=== PATIENT | female | born 1975 | race Asian ===

== ENCOUNTER 2023-04-06 07:12 | Inpatient (IN) | payer MEDICAID ==
[~2023-04-06] VITALS: Ht 162.6 cm; Wt 77.0 kg
[2023-04-06 07:29] LABS: Basophils # (auto) 0 10 ^3/uL (0-0.2); Basophils % (auto) 0.7 % (0.0-2.0); Eosinophils # (auto) 0.1 10 ^3/uL (0-0.8); Eosinophils % (auto) 1.7 % (0.0-7.0); Hematocrit 41.7 % (36.0-46.0); Hemoglobin 14.2 g/dL (12.2-16.2); Lymphocytes # (auto) 2.8 10 ^3/uL (0.4-5.4); Lymphocytes % (auto) 41.8 % (10.0-50.0); Mean Corpuscular Hemoglobin 30.6 pg (28.0-32.0); Mean Corpuscular Hgb Conc. 34.1 g/dL (32.0-36.0); Mean Corpuscular Volume 89.7 fL (80.0-100.0); Monocytes # (auto) 0.3 10 ^3/uL (0-1.3); Monocytes % (auto) 3.8 % (0.0-12.0); Neutrophils # (auto) 3.5 10 ^3/uL (1.6-8.6); Nucleated Red Blood Cells % 0.2 %; Red Blood Cells 4.65 10^6/uL (4.0-5.20); White Blood Cell 6.7 10^3/uL (4.4-10.8)
[2023-04-06 08:01] VITALS: PULSE 72; RESP 22; O2SAT 96
[2023-04-06 08:27] LABS: Alanine Aminotransferase 22 U/L (7-40); Albumin 4.6 g/dL (3.2-4.8); Alkaline Phosphatase 54 U/L (46-116); Anion Gap 9 (5-15); Aspartate Aminotransferase 28 U/L (13-40); BUN/Creatinine Ratio 11.9 (10.0-20.0); Bilirubin, Total 1.1 mg/dL (0.2-1.0); Blood Urea Nitrogen 7 mg/dL (9-23); Calcium 9.6 mg/dL (8.5-10.1); Carbon Dioxide 24 mmol/L (20-30); Chloride 106 mmol/L (98-107); Glucose 126 mg/dL (74-106); Potassium 3.4 mmol/L (3.5-5.1); Sodium 139 mmol/L (136-145)
[2023-04-06 08:28] LABS: Total Protein 7.3 g/dL (5.7-8.2)
[2023-04-06] MEDS ORDERED: KETOROLAC TROMETH 30 MG/ML 1ML VIAL IV ONE ×2 (08:45→09:15)
[2023-04-06] MEDS ORDERED: DICYCLOMINE HCL (10MG/ML) 2 ML AMPULE IM ONE (08:45)
[2023-04-06] MEDS ORDERED: POTASSIUM EFFERVESENT TAB 25 MEQ PO ONE (08:45)
[2023-04-06] MEDS ORDERED: ONDANSETRON HCL 4 MG/2 ML VIAL IV ONE (08:45)
[2023-04-06 09:14] LABS: Magnesium 1.9 mg/dL (1.6-2.6)
[2023-04-06] MEDS ORDERED: PIPERACILLIN-TAZO 4.5GM 100 ML IV ONE (09:15)
[2023-04-06] MEDS ORDERED: KETOROLAC TROMETH 60MG/2ML VIAL IV ONE (09:30)
[2023-04-06 09:57] LABS: Urine Bacteria FEW /hpf (None Seen); Urine Blood Negative /uL (Negative); Urine Clarity HAZY (Clear); Urine Color Yellow (Yellow); Urine Mucus FEW (None Seen); Urine Protein, UAD TRACE (Negative); Urine Specific Gravity 1.014 (1.001-1.035); Urine Urobilinogen Normal (Negative); Urine WBC 8 /hpf (0 - 5)
[2023-04-06] MEDS ORDERED: PANTOPRAZOLE 40 MG/10 ML VIAL INJ IV ONE ×2 (11:00)
[2023-04-06] MEDS ORDERED: KETOROLAC TROMETH 30 MG/ML 1ML VIAL IV PRN (11:00)
[2023-04-06] MEDS ORDERED: ACETAMINOPHEN 325 MG TAB PO PRN (11:00)
[2023-04-06] MEDS: SODIUM CHLORIDE 0.9% 1,000 ML IV SCH ×2 (11:11→21:14)
[2023-04-06 11:59] LABS: INR 1.02 (0.9-1.15); Prothrombin Time 10.7 sec (9.3-11.8)
[2023-04-06] MEDS: PIPERACILLIN-TAZOB 3.375GM 100 ML IV SCH ×2 (12:00→21:13)
[2023-04-06] MEDS: ONDANSETRON HCL 4 MG/2 ML VIAL IV PRN ×2 (14:43→21:14)
[2023-04-06] MEDS: MORPHINE SULFATE INJ 2 MG/ml SYRG IV PRN ×2 (14:44→21:14)
[2023-04-06 20:10] VITALS: PULSE 76; RESP 12; O2SAT 96
[2023-04-06 22:00] VITALS: BP 124/85; PULSE 74; RESP 15; TEMP 97.3; O2SAT 93
[2023-04-07] VITALS (7 sets, daily range): BP systolic 111–143; BP diastolic 74–84; PULSE 65–79; RESP 16–22; TEMP 97.8–98.6; O2SAT 84–100
[2023-04-07] MEDS: PIPERACILLIN-TAZOB 3.375GM 100 ML IV SCH ×3 (04:33→20:48)
[2023-04-07] MEDS: SODIUM CHLORIDE 0.9% 1,000 ML IV SCH ×3 (04:33→20:20)
[2023-04-07 07:04] LABS: Basophils # (auto) 0 10 ^3/uL (0-0.2); Eosinophils # (auto) 0.1 10 ^3/uL (0-0.8); Eosinophils % (auto) 3.7 % (0.0-7.0); Hematocrit 39.1 % (36.0-46.0); Lymphocytes # (auto) 1.3 10 ^3/uL (0.4-5.4); Mean Corpuscular Hemoglobin 30.4 pg (28.0-32.0); Mean Corpuscular Hgb Conc. 33.3 g/dL (32.0-36.0); Mean Corpuscular Volume 91.2 fL (80.0-100.0); Monocytes # (auto) 0.2 10 ^3/uL (0-1.3); Monocytes % (auto) 6.6 % (0.0-12.0); Neutrophils # (auto) 1.8 10 ^3/uL (1.6-8.6); Neutrophils % (auto) 50.7 % (37.0-80.0); Nucleated Red Blood Cells % 0.2 %; Red Blood Cells 4.28 10^6/uL (4.0-5.20); Red Cell Distribution Width 13.1 % (11.8-14.3); White Blood Cell 3.5 10^3/uL (4.4-10.8)
[2023-04-07 07:12] LABS: Alanine Aminotransferase 613 U/L (7-40); Albumin 4.1 g/dL (3.2-4.8); Alkaline Phosphatase 139 U/L (46-116); Anion Gap 8 (5-15); Aspartate Aminotransferase 845 U/L (13-40); Bilirubin, Total 3.9 mg/dL (0.2-1.0); Calcium 8.9 mg/dL (8.7-10.4); Carbon Dioxide 26 mmol/L (20-30); Chloride 105 mmol/L (98-107); Glucose 96 mg/dL (74-106); Potassium 3.8 mmol/L (3.5-5.1); Sodium 139 mmol/L (136-145); Total Protein 6.8 g/dL (5.7-8.2)
[2023-04-07 07:16] LABS: BUN/Creatinine Ratio 7.8 (10.0-20.0); Blood Urea Nitrogen < 5 mg/dL (9-23)
[2023-04-07] MEDS ORDERED: PANTOPRAZOLE 40 MG/10 ML VIAL INJ IV SCH (10:00)
[2023-04-07] MEDS: PANTOPRAZOLE 40 MG/10 ML VIAL INJ IV SCH (10:29)
[2023-04-08] MEDS: PIPERACILLIN-TAZOB 3.375GM 100 ML IV SCH ×3 (04:00→22:09)
[2023-04-08] MEDS: SODIUM CHLORIDE 0.9% 1,000 ML IV SCH ×2 (04:40→13:00)
[2023-04-08 09:00] VITALS: BP 112/72; PULSE 83; RESP 16; TEMP 97.9; O2SAT 92
[2023-04-08] MEDS: PANTOPRAZOLE 40 MG/10 ML VIAL INJ IV SCH (10:00)
[2023-04-08 11:05] LABS: Basophils # (auto) 0 10 ^3/uL (0-0.2); Basophils % (auto) 0.4 % (0.0-2.0); Eosinophils # (auto) 0.2 10 ^3/uL (0-0.8); Eosinophils % (auto) 4.4 % (0.0-7.0); Hematocrit 38.8 % (36.0-46.0); Hemoglobin 13.2 g/dL (12.2-16.2); Lymphocytes # (auto) 1.3 10 ^3/uL (0.4-5.4); Lymphocytes % (auto) 26.4 % (10.0-50.0); Mean Corpuscular Hemoglobin 30.9 pg (28.0-32.0); Mean Corpuscular Volume 91.1 fL (80.0-100.0); Monocytes # (auto) 0.2 10 ^3/uL (0-1.3); Monocytes % (auto) 4.1 % (0.0-12.0); Neutrophils # (auto) 3.1 10 ^3/uL (1.6-8.6); Neutrophils % (auto) 64.7 % (37.0-80.0); Nucleated Red Blood Cells % 0.3 %; Red Blood Cells 4.26 10^6/uL (4.0-5.20); Red Cell Distribution Width 12.6 % (11.8-14.3); White Blood Cell 4.9 10^3/uL (4.4-10.8)
[2023-04-08 11:20] LABS: Alanine Aminotransferase 508 U/L (7-40); Alkaline Phosphatase 130 U/L (46-116); Anion Gap 13 (5-15); Aspartate Aminotransferase 270 U/L (13-40); Bilirubin, Total 1.8 mg/dL (0.2-1.0); Calcium 8.7 mg/dL (8.5-10.1); Carbon Dioxide 20 mmol/L (20-30); Chloride 105 mmol/L (98-107); Glucose 65 mg/dL (74-106); Potassium 3.4 mmol/L (3.5-5.1); Sodium 138 mmol/L (136-145); Total Protein 6.8 g/dL (5.7-8.2)
[2023-04-08 12:45] LABS: BUN/Creatinine Ratio 9.1 (10.0-20.0); Blood Urea Nitrogen < 5 mg/dL (9-23)
[2023-04-08 13:00] VITALS: BP 117/75; PULSE 71; RESP 16; TEMP 97.6; O2SAT 95
[2023-04-08] MEDS: D5W/SOD CHL 0.9%/KCL 40MEQ 1,000 ML IV SCH (14:40)
[2023-04-08 17:00] VITALS: BP 119/73; PULSE 76; RESP 18; TEMP 98.5; O2SAT 97
[2023-04-08 17:12] LABS: INR 1.07 (0.9-1.15); Prothrombin Time 11.2 sec (9.3-11.8)
[2023-04-08 20:00] VITALS: PULSE 79; RESP 22; O2SAT 96
[2023-04-08 22:00] VITALS: BP 120/82; PULSE 75; RESP 22; TEMP 98.1; O2SAT 96
[2023-04-09] MEDS: PIPERACILLIN-TAZOB 3.375GM 100 ML IV SCH ×3 (04:12→21:49)
[2023-04-09 05:00] VITALS: BP 115/73; PULSE 79; RESP 22; TEMP 97.9; O2SAT 94
[2023-04-09 06:39] LABS: Alanine Aminotransferase 328 U/L (7-40); Albumin 4.3 g/dL (3.2-4.8); Alkaline Phosphatase 126 U/L (46-116); Anion Gap 12 (5-15); Aspartate Aminotransferase 103 U/L (13-40); Bilirubin, Total 1.2 mg/dL (0.2-1.0); Calcium 8.9 mg/dL (8.7-10.4); Carbon Dioxide 19 mmol/L (20-30); Chloride 107 mmol/L (98-107); Potassium 3.8 mmol/L (3.5-5.1); Sodium 138 mmol/L (136-145)
[2023-04-09 06:42] LABS: INR 1.05 (0.9-1.15); Partial Thromboplastin Time 31.7 SEC (24.5-34.5)
[2023-04-09 06:45] LABS: Basophils # (auto) 0 10 ^3/uL (0-0.2); Basophils % (auto) 0.5 % (0.0-2.0); Eosinophils # (auto) 0.1 10 ^3/uL (0-0.8); Eosinophils % (auto) 2.7 % (0.0-7.0); Hematocrit 40.1 % (36.0-46.0); Hemoglobin 13.2 g/dL (12.2-16.2); Lymphocytes # (auto) 1.5 10 ^3/uL (0.4-5.4); Lymphocytes % (auto) 28.7 % (10.0-50.0); Mean Corpuscular Hemoglobin 30.3 pg (28.0-32.0); Mean Corpuscular Hgb Conc. 32.9 g/dL (32.0-36.0); Mean Corpuscular Volume 92.1 fL (80.0-100.0); Monocytes # (auto) 0.3 10 ^3/uL (0-1.3); Monocytes % (auto) 6.5 % (0.0-12.0); Neutrophils # (auto) 3.3 10 ^3/uL (1.6-8.6); Neutrophils % (auto) 61.6 % (37.0-80.0); Nucleated Red Blood Cells % 0.2 %; Red Blood Cells 4.35 10^6/uL (4.0-5.20); Red Cell Distribution Width 13.1 % (11.8-14.3); White Blood Cell 5.4 10^3/uL (4.4-10.8)
[2023-04-09] MEDS ORDERED: LIDOCAINE 2% JELLY 11ml (GLYDO) ONE (06:55)
[2023-04-09] MEDS ORDERED: LIDOCAINE 1% HCL (LOCAL ANESTH.) INJ 20ML MDV ONE (06:56)
[2023-04-09] MEDS ORDERED: LIDOCAINE 2% (LOCAL ANESTH.) PF 5ml SDV ONE (06:58)
[2023-04-09] MEDS ORDERED: PROPOFOL 10 MG/ML 20 ML IV ONE (06:58)
[2023-04-09] MEDS ORDERED: ROCURONIUM 10MG/ML 10ML VIAL IV ONE (06:58)
[2023-04-09] MEDS ORDERED: KETOROLAC TROMETH 30 MG/ML 1ML VIAL ONE (06:59)
[2023-04-09] MEDS ORDERED: ONDANSETRON HCL 4 MG/2 ML VIAL ONE (06:59)
[2023-04-09] MEDS ORDERED: DexAMETHasone SOD PHOS 10MG/1ML VIAL INJ ONE (06:59)
[2023-04-09] MEDS ORDERED: GLYCOPYRROLATE 0.2 MG/ML 1ML VIAL ONE (06:59)
[2023-04-09] MEDS ORDERED: fentaNYL CITRATE 100 MCG/2 ML VL ONE (07:00)
[2023-04-09] MEDS ORDERED: SUGAMMADEX 200mg/2ml Vial (100MG/ML) IV ONE (07:00)
[2023-04-09 07:07] LABS: Glucose 82 mg/dL (74-106)
[2023-04-09 07:11] LABS: BUN/Creatinine Ratio 8.1 (10.0-20.0); Blood Urea Nitrogen < 5 mg/dL (9-23)
[2023-04-09] MEDS ORDERED: ACETAMINOPHEN IV 1000 MG/100ML (10MG/ML) IV ONE (07:30)
[2023-04-09] MEDS ORDERED: GABAPENTIN 400 MG CAP PO ONE (07:30)
[2023-04-09] MEDS ORDERED: CELECOXIB 100 MG CAP PO ONE (07:30)
[2023-04-09 08:30] VITALS: BP 118/82; PULSE 76; RESP 16; TEMP 97.8; O2SAT 98
[2023-04-09 09:00] VITALS: BP 118/82; PULSE 76; RESP 16; TEMP 97.8; O2SAT 98
[2023-04-09] MEDS: D5W/SOD CHL 0.9%/KCL 40MEQ 1,000 ML IV SCH ×3 (10:00→22:45)
[2023-04-09] MEDS: PANTOPRAZOLE 40 MG/10 ML VIAL INJ IV SCH (10:55)
[2023-04-09] MEDS ORDERED: ESMOLOL HCL 10 ML IV ONE (13:24)
[2023-04-09] MEDS ORDERED: fentaNYL CITRATE 100 MCG/2 ML VL IV PRN (14:15)
[2023-04-09] MEDS ORDERED: hydrALAZINE HCL 20 MG/ML VL IV PRN (14:15)
[2023-04-09] MEDS ORDERED: FLUMAZENIL 0.1 MG/ML INJ 10ML MDV IV PRN (14:15)
[2023-04-09] MEDS ORDERED: NALOXONE HCL 0.4 MG/ML VIAL IV PRN (14:15)
[2023-04-09] MEDS ORDERED: LABETALOL HCL 5 MG/ML 4ML SYRINGE IV PRN (14:15)
[2023-04-09] MEDS ORDERED: oxyCODONE HCL 5MG TAB PO PRN (14:15)
[2023-04-09] MEDS ORDERED: ONDANSETRON HCL 4 MG/2 ML VIAL IV PRN (14:15)
[2023-04-09] MEDS ORDERED: ePHEDrine SULFATE 50 MG/ML AMP IV PRN (14:15)
[2023-04-09] MEDS: HYDROmorphone HCL 2 MG/ML VL/or syr IV PRN ×2 (14:26→14:39)
[2023-04-09 16:48] VITALS: BP 132/85; PULSE 74; RESP 12; TEMP 96.8; O2SAT 95
[2023-04-09] MEDS: MORPHINE SULFATE INJ 2 MG/ml SYRG IV PRN (18:24)
[2023-04-09 20:00] VITALS: PULSE 82
[2023-04-09 22:00] VITALS: BP 139/59; PULSE 66; RESP 20; TEMP 97.8; O2SAT 95
[2023-04-10] MEDS: MORPHINE SULFATE INJ 2 MG/ml SYRG IV PRN ×2 (00:28→09:25)
[2023-04-10 05:00] VITALS: BP 110/72; PULSE 62; RESP 16; TEMP 98.4; O2SAT 94
[2023-04-10] MEDS: PIPERACILLIN-TAZOB 3.375GM 100 ML IV SCH ×3 (05:14→20:37)
[2023-04-10] MEDS: D5W/SOD CHL 0.9%/KCL 40MEQ 1,000 ML IV SCH ×2 (05:15→12:27)
[2023-04-10 07:22] LABS: Basophils # (auto) 0 10 ^3/uL (0-0.2); Basophils % (auto) 0.1 % (0.0-2.0); Eosinophils # (auto) 0 10 ^3/uL (0-0.8); Hematocrit 39.8 % (36.0-46.0); Hemoglobin 13.3 g/dL (12.2-16.2); Lymphocytes # (auto) 1.3 10 ^3/uL (0.4-5.4); Lymphocytes % (auto) 20.4 % (10.0-50.0); Mean Corpuscular Hemoglobin 30.5 pg (28.0-32.0); Mean Corpuscular Hgb Conc. 33.5 g/dL (32.0-36.0); Mean Corpuscular Volume 91.1 fL (80.0-100.0); Monocytes # (auto) 0.4 10 ^3/uL (0-1.3); Monocytes % (auto) 5.5 % (0.0-12.0); Neutrophils # (auto) 4.8 10 ^3/uL (1.6-8.6); Nucleated Red Blood Cells % 0.1 %; Red Blood Cells 4.37 10^6/uL (4.0-5.20); White Blood Cell 6.5 10^3/uL (4.4-10.8)
[2023-04-10 07:31] LABS: Alanine Aminotransferase 264 U/L (7-40); Albumin 4.4 g/dL (3.2-4.8); Alkaline Phosphatase 124 U/L (46-116); Anion Gap 11 (5-15); Aspartate Aminotransferase 89 U/L (13-40); Calcium 9.1 mg/dL (8.7-10.4); Carbon Dioxide 18 mmol/L (20-30); Chloride 106 mmol/L (98-107); Glucose 102 mg/dL (74-106); Sodium 135 mmol/L (136-145)
[2023-04-10 07:33] LABS: Bilirubin, Total 0.9 mg/dL (0.2-1.0); Total Protein 7.3 g/dL (5.7-8.2)
[2023-04-10 07:34] LABS: BUN/Creatinine Ratio 8.3 (10.0-20.0); Blood Urea Nitrogen < 5 mg/dL (9-23)
[2023-04-10 08:00] VITALS: PULSE 75; PULSE 79; RESP 12; O2SAT 96
[2023-04-10 09:00] VITALS: BP 112/73; PULSE 79; RESP 12; TEMP 96.9; O2SAT 96
[2023-04-10] MEDS: PANTOPRAZOLE 40 MG/10 ML VIAL INJ IV SCH (09:24)
[2023-04-10] MEDS ORDERED: D5W/SOD CHL 0.9%/KCL 40MEQ 1,000 ML IV SCH (11:15)
[2023-04-10] MEDS: DOCUSATE SOD 100 MG CAP PO SCH ×2 (12:27→21:29)
[2023-04-10 12:50] VITALS: BP 103/75; PULSE 80; RESP 16; TEMP 97.9; O2SAT 95
[2023-04-10 17:00] VITALS: BP 102/66; PULSE 62; RESP 14; TEMP 98; O2SAT 97
[2023-04-10] MEDS: ONDANSETRON HCL 4 MG/2 ML VIAL IV PRN (21:29)
[2023-04-10] MEDS: HYDROcodone-ACET 5/325MG TAB PO PRN (21:29)
[2023-04-10 22:00] VITALS: BP 104/71; PULSE 79; RESP 18; TEMP 98.7; O2SAT 94
[2023-04-11] VITALS (7 sets, daily range): BP systolic 97–115; BP diastolic 53–77; PULSE 69–79; RESP 14–18; TEMP 97.9–98.9; O2SAT 95–97
[2023-04-11] MEDS: MORPHINE SULFATE INJ 2 MG/ml SYRG IV PRN (03:39)
[2023-04-11] MEDS: PIPERACILLIN-TAZOB 3.375GM 100 ML IV SCH ×3 (03:39→19:34)
[2023-04-11] MEDS: D5W/SOD CHL 0.9%/KCL 40MEQ 1,000 ML IV SCH (04:25)
[2023-04-11 06:06] LABS: Basophils # (auto) 0.1 10 ^3/uL (0-0.2); Basophils % (auto) 2.5 % (0.0-2.0); Eosinophils # (auto) 0.1 10 ^3/uL (0-0.8); Eosinophils % (auto) 1.4 % (0.0-7.0); Hematocrit 37.5 % (36.0-46.0); Hemoglobin 12.7 g/dL (12.2-16.2); Lymphocytes # (auto) 1.8 10 ^3/uL (0.4-5.4); Lymphocytes % (auto) 42.9 % (10.0-50.0); Mean Corpuscular Hemoglobin 30.5 pg (28.0-32.0); Mean Corpuscular Hgb Conc. 33.8 g/dL (32.0-36.0); Mean Corpuscular Volume 90.2 fL (80.0-100.0); Monocytes # (auto) 0.3 10 ^3/uL (0-1.3); Monocytes % (auto) 7.9 % (0.0-12.0); Neutrophils # (auto) 1.9 10 ^3/uL (1.6-8.6); Neutrophils % (auto) 45.3 % (37.0-80.0); Nucleated Red Blood Cells % 0.1 %; Red Blood Cells 4.15 10^6/uL (4.0-5.20); Red Cell Distribution Width 13.2 % (11.8-14.3); White Blood Cell 4.2 10^3/uL (4.4-10.8)
[2023-04-11 06:24] LABS: Anion Gap 5 (5-15); Carbon Dioxide 25 mmol/L (20-30); Chloride 110 mmol/L (98-107); Potassium 3.5 mmol/L (3.5-5.1); Sodium 140 mmol/L (136-145)
[2023-04-11 06:30] LABS: Glucose 94 mg/dL (74-106)
[2023-04-11 06:32] LABS: BUN/Creatinine Ratio 10.6 (10.0-20.0); Blood Urea Nitrogen < 5 mg/dL (9-23)
[2023-04-11] MEDS: DOCUSATE SOD 100 MG CAP PO SCH ×2 (09:03→22:00)
[2023-04-11] MEDS: PANTOPRAZOLE 40 MG/10 ML VIAL INJ IV SCH (09:03)
[2023-04-11] MEDS ORDERED: LACTULOSE 20Gm/30ML SOLN PO ONE (14:00)
[2023-04-11] MEDS: HYDROcodone-ACET 5/325MG TAB PO PRN (14:09)
[2023-04-12] MEDS: PIPERACILLIN-TAZOB 3.375GM 100 ML IV SCH ×2 (03:50→12:35)
[2023-04-12] MEDS: D5W/SOD CHL 0.9%/KCL 40MEQ 1,000 ML IV SCH ×2 (03:50→13:45)
[2023-04-12 05:00] VITALS: BP 100/63; PULSE 77; RESP 18; TEMP 98.8; O2SAT 94
[2023-04-12 08:00] VITALS: PULSE 70; RESP 14
[2023-04-12 09:00] VITALS: BP 108/73; PULSE 71; RESP 14; TEMP 98.2; O2SAT 95
[2023-04-12] MEDS: DOCUSATE SOD 100 MG CAP PO SCH (09:02)
[2023-04-12] MEDS: PANTOPRAZOLE 40 MG/10 ML VIAL INJ IV SCH (09:02)
[2023-04-12] MEDS: HYDROcodone-ACET 5/325MG TAB PO PRN (09:02)
[2023-04-12 13:00] VITALS: BP 114/69; PULSE 72; RESP 14; TEMP 98.3; O2SAT 94
[2023-04-12] MEDS ORDERED: MET500T PO (13:57)
[2023-04-12] MEDS ORDERED: HYDR-4902 PO (13:57)
[2023-04-12 15:43] VITALS: BP 114/69; PULSE 72; RESP 14; TEMP 36.8; O2SAT 94
== END 2023-04-12 16:20 | disposition home or self-care (01) | DRG 710 ==
LOC: ER 07:12 → OVERFLOW 10:56 → WEST WING 22:18 → TELE-WESTW 04-09 18:14 → WEST WING 04-09 22:51
PROVIDERS: ADMIT Nurse Practitioner Family; ATTEND Nurse Practitioner Acute Care
PROC: 0FT44ZZ Resection of Gallbladder, Percutaneous Endoscopic Approach (ICD-10-PCS; principal; 2023-04-09 12:55)
DX: A41.9 Sepsis, unspecified organism (principal); K80.00 Calculus of gallbladder with acute cholecystitis without obstruction; E87.6 Hypokalemia; R74.01 Elevation of levels of liver transaminase levels
CPT/HCPCS: 36415; 71045; 74176; 74181; 76705; 78226; 80048; 80053; 81001; 83690; 83735; 84484; 84702; 85025; 85610; 85730; 86850; 86900; 86901; 93005; 96365; 96367; 96372; 96375; C9113; G0378; J0131; J1100; J1885; J2001; J2405; J2543; J2704

== ENCOUNTER 2023-04-27 12:32 | Emergency (ER) | payer MEDICAID ==
[~2023-04-27] VITALS: Ht 162.6 cm; Wt 70.6 kg
[~2023-04-27 12:32] MED LIST: HYDR-4902 PO; MET500T PO
[2023-04-27] MEDS ORDERED: PANTOPRAZOLE 40 MG/10 ML VIAL INJ IV ONE (13:30)
[2023-04-27] MEDS ORDERED: MORPHINE SULFATE 4 MG/ML SYR/VIAL IV ONE (13:30)
[2023-04-27] MEDS ORDERED: ONDANSETRON HCL 4 MG/2 ML VIAL IV ONE (13:30)
[2023-04-27 14:02] LABS: INR 0.98 (0.9-1.15); Prothrombin Time 10.3 sec (9.3-11.8)
[2023-04-27 14:09] LABS: Alanine Aminotransferase 25 U/L (7-40); Albumin 4.6 g/dL (3.2-4.8); Alkaline Phosphatase 59 U/L (46-116); Anion Gap 9 (5-15); Aspartate Aminotransferase 29 U/L (13-40); BUN/Creatinine Ratio 11.1 (10.0-20.0); Bilirubin, Total 0.6 mg/dL (0.2-1.0); Blood Urea Nitrogen 6 mg/dL (9-23); Calcium 9.4 mg/dL (8.5-10.1); Carbon Dioxide 26 mmol/L (20-30); Chloride 106 mmol/L (98-107); Glucose 92 mg/dL (74-106); Potassium 3.9 mmol/L (3.5-5.1); Sodium 141 mmol/L (136-145); Total Protein 7.5 g/dL (5.7-8.2)
[2023-04-27 14:12] LABS: Eosinophils # (auto) 0.3 10 ^3/uL (0-0.8); Hemoglobin 13.5 g/dL (12.2-16.2); Lymphocytes # (auto) 2.1 10 ^3/uL (0.4-5.4); Neutrophils # (auto) 2.6 10 ^3/uL (1.6-8.6); Nucleated Red Blood Cells % 0.1 %; White Blood Cell 5.3 10^3/uL (4.4-10.8)
[2023-04-27 14:14] LABS: Basophils # (auto) 0 10 ^3/uL (0-0.2); Basophils % (auto) 0.9 % (0.0-2.0); Eosinophils % (auto) 6.5 % (0.0-7.0); Hematocrit 39.6 % (36.0-46.0); Lymphocytes % (auto) 39.6 % (10.0-50.0); Mean Corpuscular Hemoglobin 30.7 pg (28.0-32.0); Mean Corpuscular Volume 90.3 fL (80.0-100.0); Monocytes # (auto) 0.2 10 ^3/uL (0-1.3); Monocytes % (auto) 4.3 % (0.0-12.0); Neutrophils % (auto) 48.7 % (37.0-80.0); Red Blood Cells 4.38 10^6/uL (4.0-5.20); Red Cell Distribution Width 13.1 % (11.8-14.3)
[2023-04-27 14:40] LABS: Magnesium 1.9 mg/dL (1.6-2.6)
[2023-04-27 16:21] LABS: Urine Bacteria FEW /hpf (None Seen); Urine Blood Negative /uL (Negative); Urine Clarity Clear (Clear); Urine Color Yellow (Yellow); Urine Mucus FEW (None Seen); Urine Protein, UAD Negative (Negative); Urine Specific Gravity 1.015 (1.001-1.035); Urine Urobilinogen Normal (Negative); Urine WBC 2 /hpf (0 - 5)
[2023-04-27 20:14] VITALS: BP 103/72; PULSE 70; RESP 18; TEMP 98.2; O2SAT 97
== END 2023-04-27 21:06 | disposition short-term general hospital (02) ==
LOC: ER 12:32
DX: K80.50 Calculus of bile duct without cholangitis or cholecystitis without obstruction (principal); R10.13 Epigastric pain; Z98.890 Other specified postprocedural states; Z79.899 Other long term (current) drug therapy
CPT/HCPCS: 36415; 74181; 80053; 81001; 83690; 83735; 85025; 85610; 85730; 96374; 96375; 99285; C9113; J2270; J2405

== ENCOUNTER 2025-02-26 19:44 | Inpatient (IN) | payer MEDICAID, OTHER ==
[~2025-02-26] VITALS: Ht 167.6 cm; Wt 72.7 kg
[2025-02-26 20:21] LABS: Hematocrit 42.8 % (36.0-46.0); Hemoglobin 14.8 g/dL (12.2-16.2); Mean Corpuscular Hemoglobin 30.0 pg (28.0-32.0); Mean Corpuscular Volume 87.1 fL (80.0-100.0); Nucleated Red Blood Cells % 0.1 %
[2025-02-26 20:25] LABS: Chloride 104 mmol/L (98-107); Sodium 139 mmol/L (136-145)
[2025-02-26 20:26] LABS: Anion Gap 12 (5-15); Carbon Dioxide 23 mmol/L (20-31)
[2025-02-26 20:27] LABS: Calcium 9.1 mg/dL (8.7-10.4)
--- NOTE | 2025-02-26 20:30 | ED.PDOC ---
History of Present Illness HPI Comments 50 y/o F presents with spouse and child for c/c of nonradiating, abdominal pain, with associated nausea, vomiting, and diarrhea. Patient endorses on 4x day history of intermittent pain with nausea and vomiting, with additional onset of watery-stools when using her bathroom, this morning. Significant history of cholecystectomy 2x years ago without complications. Otherwise, no reported known sick contact, injuries, spoiled food consumption, or pertinent history or events. Denial of any bloody vomitus or diarrhea, urinary symptoms, constipation, fever, chills, or further associated symptoms. Chief Complaint: Abdominal Pain Time Seen by MD: 19:55 Reviewed Notes: Nurses Notes, Medications, Allergies Allergies: Coded Allergies: NO KNOWN ALLERGIES (Unverified , 04/06/23) Home Meds Active Scripts Metronidazole (Metronidazole) 500 Mg Tab, 500 MG PO TID for 3 Days, #9 TAB Prov:KIM FU VISUAL EFFECTS EDITOR 04/12/23 Hydrocodone-Acetaminophen (Hydrocodone Bitartrate/AC 5-325 mg) 1 Tab Tab, 1 TAB PO Q6HPRN PRN for 5 Days, #20 TAB Prov:KIM FU VISUAL EFFECTS EDITOR 04/12/23 Information Source: Patient, Relative Mode of Arrival: Ambulatory Severity: Moderate Timing: Days Duration: Since onset Prehospital treatment: None Past Medical History PAST MEDICAL HISTORY: Denies Surgical History: Cholecystectomy 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 Pertinent STRANDING SUPERVISOR History Family History Family History: Family hx of Cancer Social History Smoker: Non-Smoker Alcohol: Denies ETOH Use Drugs: Denies Drug Use Lives In: Home All Other Systems: Reviewed and Negative (Comprehensive systems review obtained and negative except for what is stated in the HPI.) Physical Exam General Appearance: No Apparent Distress, Normal, Other (appears unwell) HEENT: Normal ENT Inspection, Pharynx Normal, TMs Normal Neck: Full Range of Motion, Non-Tender, Normal, Normal Inspection Respiratory: Chest Non-Tender, Lungs Clear, No Accessory Muscle Use, No Respiratory Distress, Normal Breath Sounds Cardiovascular: No Edema, No JVD, No Murmur, No Gallop, Normal Peripheral Pulses, Regular Rate/Rhythm Breast Exam: Deferred Gastrointestinal: No Organomegaly, Non Tender, No Pulsatile Mass, Normal Bowel Sounds, Soft, Other (actively vomiting ) Genitalia: Deferred Pelvic: Deferred Rectal: Deferred Extremities: No calf tenderness, Normal capillary refill, Normal inspection, Normal range of motion, Non-tender, No pedal edema Musculoskeletal : Apperance: Normal Neurologic: Alert, oracle forms developer II-XII nml as Tested, No Motor Deficits, Normal Affect, Normal Mood, No Sensory Deficits Cerebellar Function: Normal Reflexes: Normal Skin: Dry, Normal Color, Warm Lymphatic: No Adenopathy Was a procedure done? Was a procedure done?: No Differential Dx Considerations may include: gastritis, gastroenteritis, GERD, PUD, spoiled food, viral syndrome, cholelithiasis, cystitis, pyelonephritis, nephrolithiasis, appendicitis, diverticulitis, dehydration, electrolyte imbalance, among others X-Ray, Labs, Meds, VS Vital Signs Date Time Temp Pulse Resp B/P (MAP) Pulse Ox O2 Delivery O2 Flow Rate FiO2 02/26/25 21:45 108 20 121/75 02/26/25 21:26 97.7 105 18 121/75 (90) 97 97.7 02/26/25 19:45 98.4 118 16 124/93 96 98.4 Lab Test 02/26/25 20:03 Range/Units White Blood Count 5.6 4.4-10.8 10^3/uL Red Blood Count 4.91 4.0-5.20 10^6/uL Hemoglobin 14.8 12.2-16.2 g/dL Hematocrit 42.8 36.0-46.0 % Mean Corpuscular Volume 87.1 80.0-100.0 fL Mean Corpuscular Hemoglobin 30.0 28.0-32.0 pg Mean Corpuscular Hemoglobin Concent 34.5 32.0-36.0 g/dL Red Cell Distribution Width 13.0 11.8-14.3 % Platelet Count 354 140-450 10^3/uL Mean Platelet Volume 8.3 6.9-10.8 fL Neutrophils (%) (Auto) 60.9 37.0-80.0 % Lymphocytes (%) (Auto) 28.9 10.0-50.0 % Monocytes (%) (Auto) 7.5 0.0-12.0 % Eosinophils (%) (Auto) 2.3 0.0-7.0 % Basophils (%) (Auto) 0.4 0.0-2.0 % Neutrophils # (Auto) 3.4 1.6-8.6 10 ^3/uL Lymphocytes # (Auto) 1.6 0.4-5.4 10 ^3/uL Monocytes # (Auto) 0.4 0-1.3 10 ^3/uL Eosinophils # (Auto) 0.1 0-0.8 10 ^3/uL Basophils # (Auto) 0 0-0.2 10 ^3/uL Nucleated Red Blood Cells 0.1 % Sodium Level 139 136-145 mmol/L Potassium Level 3.5 3.5-5.1 mmol/L Chloride Level 104 98-107 mmol/L Carbon Dioxide Level 23 20-31 mmol/L Anion Gap 12 5-15 Blood Urea Nitrogen 7 L 9-23 mg/dL Creatinine 0.60 0.550-1.02 mg/dL Glomerular Filtration Rate Calc 109 >90 mL/min BUN/Creatinine Ratio 11.7 10.0-20.0 Serum Glucose 127 H 74-106 mg/dL Calcium Level 9.1 8.7-10.4 mg/dL Current Medications Medications (Trade) Dose Ordered Sig/Cullen Route Start Time Stop Time Status Last Admin Morphine Sulfate 4 mg ONCE ONCE IV 02/26/25 20:15 02/26/25 20:16 DC 02/26/25 21:45 Sodium Chloride 1,000 ml @ 1,000 mls/hr Q1H ONCE IV 02/26/25 20:15 02/26/25 21:14 DC 02/26/25 21:47 Ondansetron HCl (Zofran) 4 mg ONCE ONCE IV 02/26/25 20:15 02/26/25 20:16 DC 02/26/25 21:47 Time of 1ST Reevaluation: 20:25 Reevaluation 1ST: Unchanged Patient Education/Counseling: Diagnosis, Treatment, Need For Follow Up Family Education/Counseling: Diagnosis, Treatment, Need For Follow Up SEPSIS Sepsis Screen Date sepsis recognized/suspect: Feb 26, 2025 Time Sepsis recognized/suspect: 1944 Recent Procedure: No On Antibiotic Therapy: No Respiratory Rate >20: No Heart Rate >90: Yes Temp<36 C (96.8 F) or >38.3 C: No SBP <90 or MAP <65 mmHG: No New Acute Mental Status Change: No Is the patient on CPAP, BIPAP,: No Physician Orders Urinalysis (02/26/25 19:53) Ct Ab Pel With Iv Con Only (02/26/25 22:31) Vital Signs Date Time Temp Pulse Resp B/P (MAP) Pulse Ox O2 Delivery O2 Flow Rate FiO2 02/26/25 21:45 108 20 121/75 02/26/25 21:26 97.7 105 18 121/75 (90) 97 97.7 02/26/25 19:45 98.4 118 16 124/93 96 98.4 Laboratory Tests Test 02/26/25 20:03 White Blood Count 5.6 10^3/uL (4.4-10.8) Medications Medications Dose Ordered Sig/Cullen Route Start Time Stop Time Status Last Admin Dose Admin Morphine Sulfate 4 mg ONCE ONCE IV 02/26/25 20:15 02/26/25 20:16 DC 02/26/25 21:45 Ondansetron HCl 4 mg ONCE ONCE IV 02/26/25 20:15 02/26/25 20:16 DC 02/26/25 21:47 Sodium Chloride 1,000 ml @ 1,000 mls/hr Q1H ONCE IV 02/26/25 20:15 02/26/25 21:14 DC 02/26/25 21:47 Departure 1 Departure Time of Disposition: 01:48 (Patient presented with abdominal pain that was concerning for possible appendicits, gastritis, cholecystitis, colitis, gastroenteritis, sbo, or orther possible surgical emergency. Data: 1. I ordered and reviewed the result of at least 3 labs including a CBC, BMP, and Urinalysis. 2. I independently interpreted the following tests: CT Abdoment and Pelvis is concerning for benign abdomen .Risk:This patient has a high risk of morbidity due to further diagnostic testing or treatment and may suffer from an acute abdominal process disorder. Workup reveals intractable abdominal pain and patient should be admitted for further workup. and possible expert consultation. ) Impression: Primary Impression: Intractable abdominal pain Additional Impression: Projectile vomiting with nausea Disposition: ADMITTED INPATIENT Admit to: Med Surg Condition: Serious Critical Care Note Critical Care Time?: Yes Critical care comment: Intractable abdominal pain Authorized and Performed by: Christi Gómez MD Total critical care time: Approximately 41 minutes Due to a high probability of clinically significant, life threatening deterioration, the patient required my highest level of preparedness to intervene emergently and I personally spent this critical care time directly and personally managing the patient. This critical care time included obtaining a history; examining the patient; pulse oximetry; ordering and review of studies; arranging urgent treatment with development of a management plan; evaluation of patient's response to treatment; frequent reassessment; and, discussions with other providers. This critical care time was performed to assess and manage the high probability of imminent, life-threatening deterioration that could result in multi-organ failure. It was exclusive of separately billable procedures and treating other patients and teaching time. Please see my other sections and the rest of the note for further information on patient assessment and treatment. Stability Stability form required: No Heart Score Heart Score: Heart Score Response (Comments) Value History N/A 0 EKG N/A 0 Age N/A 0 Risk Factors N/A 0 Troponin N/A 0 Total 0 I personally scribed for CHRISTI GÓMEZ MD ([email or web address]) on 02/26/25 at 20:30. Electronically submitted by Allen Garcia ([email or web address]). I personally scribed for CHRISTI GÓMEZ MD ([email or web address]) on 02/26/25 at 20:37. Electronically submitted by Allen Garcia ([email or web address]). CHRISTI GÓMEZ MD Feb 26, 2025 20:30
[2025-02-26 20:31] LABS: BUN/Creatinine Ratio 11.7 (10.0-20.0)
[2025-02-26 20:35] LABS: Blood Urea Nitrogen 7 mg/dL (9-23); Glucose 127 mg/dL (74-106); Potassium 3.5 mmol/L (3.5-5.1)
[2025-02-26] MEDS: MORPHINE SULFATE 4 MG/ML SYR/VIAL IV ONE (21:45)
[2025-02-26] MEDS: SODIUM CHLORIDE 0.9% 1,000 ML IV ONE (21:47)
[2025-02-26] MEDS: ONDANSETRON HCL 4 MG/2 ML VIAL IV ONE (21:47)
[2025-02-26] MEDS: IOHEXOL 300 MG/ML 100ML BOTTLE IJ ONE (22:46)
--- NOTE | 2025-02-27 01:25 | DVH ---
Exam: CT CT AB PEL WITH IV CON ONLY History: abdominal pain COMPARISON: CT CT AB PEL WO CON-NO ORAL OR IV on DOS: 04/06/23, US ABDOMEN LIMITED on DOS: 04/06/23 Technique: Multidetector spiral CT of the abdomen and pelvis was performed from lung bases to pubic s ymphysis. Intravenous contrast was administered during this examination. Portal venous imaging was o btained. Axial, coronal and sagittal multiplanar reformats were performed by the technologist on a [employer] workstation. Radiation Dose : 1. Abdomen/Pelvis: CTDIvol 13.5mGy, DLP 739.59 mGy*cm. CONTRAST: Type of contrast: Omnipaque 300 Contrast injected: 100 ml Findings: Lung Bases: Moderate bibasilar ground-glass opacity without evidence of focal consolidation. Normal heart size. No pleural or pericardial effusion. Liver: The liver is enlarged, measuring 20.0 cm in craniocaudal dimension. Benign-appearing hepatic c ysts measure up to 11.9 cm. No focal lesions. Normal hepatic vascular enhancement. Gallbladder and Biliary Tree: Status post cholecystectomy. Spleen: Unremarkable Pancreas: The pancreas is normal in appearance without focal lesions or abnormal enhancement. Adrenal Glands: Unremarkable Kidneys: No hydronephrosis. Bladder: Unremarkable Bowel: The stomach is grossly normal in appearance. Small bowel and colon are normal in caliber and d istribution. The appendix is normal. Ascites: Absent Lymphadenopathy: No mesenteric, retroperitoneal or periportal lymphadenopathy. Abdominal Wall and Mesentery: Unremarkable. Vasculature: The visualized abdominal aorta is normal in size and caliber. Abdominal and pelvic vess els demonstrate normal enhancement. Pelvic Organs: Left adnexal cystic structure of near water attenuation measures 3.0 cm. Likely physio logic endometrial fluid. Musculoskeletal: No aggressive focal bony lesions, acute fractures or dislocation. IMPRESSION: 1. No acute abdominal or pelvic finding. 2. Moderate nonspecific bibasilar ground-glass opacity without evidence of focal consolidation. 3. Hepatomegaly and benign-appearing hepatic cysts. 4. Probable left ovarian cyst. Radiation optimization: All CT scans at this facility use at least one of these dose optimization rai hniques: automated exposure control mA and/or kV adjustment per patient size (includes targeted exam s where dose is matched to clinical indication) or iterative reconstruction.
[2025-02-27 03:43] LABS: Urine Protein, UAD TRACE (Negative)
[2025-02-27] MEDS: SODIUM CHLORIDE 0.9% 1,000 ML IV ONE (03:55)
[2025-02-27] MEDS: MORPHINE SULFATE 4 MG/ML SYR/VIAL IV ONE (03:55)
[2025-02-27] MEDS: ONDANSETRON HCL 4 MG/2 ML VIAL IV ONE (03:56)
[2025-02-27] MEDS ORDERED: HYDROcodone-ACET 5/325MG TAB PO PRN (08:15)
[2025-02-27] MEDS ORDERED: DOCUSATE SOD 100 MG CAP PO PRN (08:15)
[2025-02-27] MEDS ORDERED: ACETAMINOPHEN 325 MG TAB PO PRN (08:15)
--- NOTE | 2025-02-27 08:20 | DVHHP2 ---
History of Present Illness Reason for Visit: Abdominal pain History of Present Illness Suresh Cleveland is a 50-year-old female with no significant past medical history who came to the hospital for abdominal pain. Patient states she has been experiencing abdominal pain with associated nausea, vomiting, and diarrhea for about 5 days. The last time she tried to eat was yesterday morning, but she vomited the food up. She states the pain started on her left side and radiates across her abdomen. Past Surgical History: Cholecystectomy Smoke: No ALCOHOL: none Drugs: None Lives: with Family Domestic Violence: Neg Review of Systems Constitutional: No: Fever, Chills, Sweats, Weakness, Malaise, Other Eyes: No: Pain, Vision change, Conjunctivae inflammation, Eyelid inflammation, Other, Redness ENT: No: Ear pain, Ear discharge, Nose pain, Nose discharge, Nose congestion, Mouth pain, Mouth swelling, Throat pain, Throat swelling, Other Respiratory: No: Cough, Dry, Shortness of breath, SOB with excertion, Wheezing, Hemoptysis, Pleuritic Pain, Sputum, Wheezing, Other Cardiovascular: No: Chest Pain, Palpitations, Orthopnea, Paroxysmal Noc. Dyspnea, Edema, Lt Headedness, Other Gastrointestinal: Nausea, Vomiting, Abdominal Pain, Diarrhea; No: Constipation, Melena, Hematochezia, Other Genitourinary: No Dysuria, No Frequency, No Incontinence, No Hematuria, No Retention, No Other Musculoskeletal: No: other, neck pain, shoulder pain, arm pain, back pain, hand pain, leg pain, foot pain Skin: No: Rash, Lesions, Jaundice, Bruising, Other Neurological: No: Weakness, Numbness, Incoordination, Change in speech, Confusion, Seizures, Other Allergies: Coded Allergies: NO KNOWN ALLERGIES (Unverified , 04/06/23) Exam Vital Signs Vital Signs Date Time Temp Pulse Resp B/P (MAP) Pulse Ox O2 Delivery O2 Flow Rate FiO2 02/27/25 03:55 100 16 133/80 02/27/25 03:50 99 02/26/25 21:26 97.7 97.7 General Appearance: Alert, Oriented X3, Cooperative, moderate distress HEENT: Atraumatic, PERRLA Respiratory: Clear to auscultation, Normal air movement Cardiovascular: Regular rate, Normal S1, Normal S2 Abdominal: Normal bowel sounds, Soft, Other (abdominal pain) Extremities: No clubbing Skin: No rashes, No breakdown, No significant lesion Neuro: Normal gait, Normal speech, Strength at 5/5 X4 ext, Normal tone Psych/Mental Status: Mental status NL, Mood NL Labs/Xrays Labs Test 02/27/25 03:00 02/26/25 20:03 Range/Units Urine Color Yellow Yellow Urine Clarity Clear Clear Urine pH 6.5 5.0-9.0 Urine Specific [place] > 1.050 H 1.001-1.035 Urine Protein Trace H Negative Urine Ketones Trace Negative Urine Blood Trace H Negative /uL Urine Nitrite Negative Negative Urine Bilirubin Negative Negative Urine Urobilinogen Normal Negative mg/dL Urine Leukocyte Esterase Negative Negative /uL Urine RBC 9 0 - 4 /hpf Urine Microscopic WBC 2 0-5 /HPF Urine Squamous Epithelial Cells Few <5 /hpf Urine Bacteria None seen None Seen /hpf Urine Glucose Normal Normal mg/dL White Blood Count 5.6 4.4-10.8 10^3/uL Red Blood Count 4.91 4.0-5.20 10^6/uL Hemoglobin 14.8 12.2-16.2 g/dL Hematocrit 42.8 36.0-46.0 % Mean Corpuscular Volume 87.1 80.0-100.0 fL Mean Corpuscular Hemoglobin 30.0 28.0-32.0 pg Mean Corpuscular Hemoglobin Concent 34.5 32.0-36.0 g/dL Red Cell Distribution Width 13.0 11.8-14.3 % Platelet Count 354 140-450 10^3/uL Mean Platelet Volume 8.3 6.9-10.8 fL Neutrophils (%) (Auto) 60.9 37.0-80.0 % Lymphocytes (%) (Auto) 28.9 10.0-50.0 % Monocytes (%) (Auto) 7.5 0.0-12.0 % Eosinophils (%) (Auto) 2.3 0.0-7.0 % Basophils (%) (Auto) 0.4 0.0-2.0 % Neutrophils # (Auto) 3.4 1.6-8.6 10 ^3/uL Lymphocytes # (Auto) 1.6 0.4-5.4 10 ^3/uL Monocytes # (Auto) 0.4 0-1.3 10 ^3/uL Eosinophils # (Auto) 0.1 0-0.8 10 ^3/uL Basophils # (Auto) 0 0-0.2 10 ^3/uL Nucleated Red Blood Cells 0.1 % Sodium Level 139 136-145 mmol/L Potassium Level 3.5 3.5-5.1 mmol/L Chloride Level 104 98-107 mmol/L Carbon Dioxide Level 23 20-31 mmol/L Anion Gap 12 5-15 Blood Urea Nitrogen 7 L 9-23 mg/dL Creatinine 0.60 0.550-1.02 mg/dL Glomerular Filtration Rate Calc 109 >90 mL/min BUN/Creatinine Ratio 11.7 10.0-20.0 Serum Glucose 127 H 74-106 mg/dL Calcium Level 9.1 8.7-10.4 mg/dL Exam: CT CT AB PEL WITH IV CON ONLY Findings: Lung Bases: Moderate bibasilar ground-glass opacity without evidence of focal consolidation. Normal heart size. No pleural or pericardial effusion. Liver: The liver is enlarged, measuring 20.0 cm in craniocaudal dimension. Benign-appearing hepatic cysts measure up to 11.9 cm. No focal lesions. Normal hepatic vascular enhancement. Gallbladder and Biliary Tree: Status post cholecystectomy. Spleen: Unremarkable Pancreas: The pancreas is normal in appearance without focal lesions or abnormal enhancement. Adrenal Glands: Unremarkable Kidneys: No hydronephrosis. Bladder: Unremarkable Bowel: The stomach is grossly normal in appearance. Small bowel and colon are normal in caliber and distribution. The appendix is normal. Ascites: Absent Lymphadenopathy: No mesenteric, retroperitoneal or periportal lymphadenopathy. Abdominal Wall and Mesentery: Unremarkable. Vasculature: The visualized abdominal aorta is normal in size and caliber. Abdominal and pelvic vessels demonstrate normal enhancement. Pelvic Organs: Left adnexal cystic structure of near water attenuation measures 3.0 cm. Likely physiologic endometrial fluid. Musculoskeletal: No aggressive focal bony lesions, acute fractures or dislocation. IMPRESSION: 1. No acute abdominal or pelvic finding. 2. Moderate nonspecific bibasilar ground-glass opacity without evidence of focal consolidation. 3. Hepatomegaly and benign-appearing hepatic cysts. 4. Probable left ovarian cyst. SEPSIS Sepsis Screen Date sepsis recognized/suspect: Feb 26, 2025 Time Sepsis recognized/suspect: 1944 Recent Procedure: No On Antibiotic Therapy: No Respiratory Rate >20: No Heart Rate >90: Yes Temp<36 C (96.8 F) or >38.3 C: No SBP <90 or MAP <65 mmHG: No New Acute Mental Status Change: No Is the patient on CPAP, BIPAP,: No Physician Orders Admit (02/27/25 08:14) Code Status (02/27/25 08:14) 0.9% Ns 1000 Ml (02/27/25 08:15) Hydrocodone-Acet 5/325mg Tab ([place] 5/32 (02/27/25 08:15) Ondansetron Hcl (Zofran) (02/27/25 08:15) Docusate Sodium Capsule (Colace Capsule) (02/27/25 08:15) Complete Blood Count (02/28/25 04:00) Comprehensive Metabolic Panel (02/28/25 04:00) Condition: Serious (02/27/25 08:14) Acetaminophen Tablet (Tylenol Tablet) (02/27/25 08:15) Clear Liq Diet (02/27/25 Breakfast) Morphine Sulfate Injection (02/27/25 08:15) Ceftriaxone Ivpb Rocephin (02/27/25 09:00) Metronidazole Ivpb Flagyl (02/27/25 08:15) Vital Signs Date Time Temp Pulse Resp B/P (MAP) Pulse Ox O2 Delivery O2 Flow Rate FiO2 02/27/25 03:55 100 16 133/80 02/27/25 03:50 100 16 133/80 (97) 99 Medications Medications Dose Ordered Sig/Cullen Route Start Time Stop Time Status Last Admin Dose Admin Morphine Sulfate 4 mg ONCE ONCE IV 02/27/25 02:00 02/27/25 02:01 DC 02/27/25 03:55 4 MG Ondansetron HCl 4 mg ONCE ONCE IV 02/27/25 02:00 02/27/25 02:01 DC 02/27/25 03:56 4 MG Sodium Chloride 1,000 ml @ 1,000 mls/hr Q1H ONCE IV 02/27/25 02:00 02/27/25 02:59 DC 02/27/25 03:55 1,000 MLS/HR Assessment/Plan Assessment/Plan Assessment: Intractable abdominal pain, Intractable nausea and vomiting, Possible enteritis, Possible left ovarian cyst, Hepatomegaly, Hepatic cyst, Plan: Admit to Med-Surg, Consider GI consult if symptoms persist, IV antibiotics, IV hydration, Clear liquid diet, Pain management, Chest X-ray, Plan discussed with: Patient, Spouse, Daughter My Orders Orders - BRET LANGLEY Procedure Category Date Status Time Admit ADMIT 02/27/25 Verified 08:14 Code Status CODE 02/27/25 Verified 08:14 0.9% Ns 1000 Ml PHA 02/27/25 Verified 08:15 Hydrocodone-Acet PHA 02/27/25 Verified 5/325mg Tab (Sebring 08:15 Ondansetron Hcl PHA 02/27/25 Verified (Zofran) 08:15 Docusate Sodium PHA 02/27/25 Verified Capsule (Colace 08:15 Complete Blood Count LAB 02/28/25 Verified 04:00 Comprehensive LAB 02/28/25 Verified Metabolic Panel 04:00 Condition: Serious SIERRA 02/27/25 Verified 08:14 Acetaminophen Tablet PHA 02/27/25 Verified (Tylenol Tablet) 08:15 Clear Liq Diet DIET 02/27/25 Verified Breakfast Morphine Sulfate PHA 02/27/25 Verified Injection 08:15 Ceftriaxone Ivpb PHA 02/27/25 Verified Rocephin 09:00 Metronidazole Ivpb PHA 02/27/25 Verified Flagyl 08:15 Date of Service: Feb 27, 2025 Billing Provider: BRET LANGLEY Common Visit Codes: [id number] INP/OBS CARE (MOD) BRET LANGLEY Feb 27, 2025 08:20
[2025-02-27 15:00] VITALS: BP 104/69; PULSE 87; RESP 16; TEMP 98.4; O2SAT 94
[2025-02-27 15:15] VITALS: BP 104/69; PULSE 87; RESP 16; TEMP 98.4; O2SAT 94
[2025-02-27] MEDS: SODIUM CHLORIDE 0.9% 1,000 ML IV SCH (15:48)
[2025-02-27 17:00] VITALS: BP 120/76; PULSE 82; RESP 16; TEMP 98.6; O2SAT 95
[2025-02-27 21:00] VITALS: BP 105/71; PULSE 96; RESP 19; TEMP 98.8; O2SAT 92
[2025-02-27] MEDS: ONDANSETRON HCL 4 MG/2 ML VIAL IV PRN (23:24)
[2025-02-27] MEDS: MORPHINE SULFATE INJ 2 MG/ml SYRG IV PRN (23:26)
[2025-02-28 01:00] VITALS: BP 111/76; PULSE 96; RESP 19; TEMP 98.8; O2SAT 93
[2025-02-28 05:00] VITALS: BP 115/69; PULSE 97; RESP 19; TEMP 98.2; O2SAT 93
[2025-02-28 06:59] LABS: Hematocrit 35.0 % (36.0-46.0); Hemoglobin 12.4 g/dL (12.2-16.2); Mean Corpuscular Hemoglobin 31.1 pg (28.0-32.0); Mean Corpuscular Volume 87.4 fL (80.0-100.0); Nucleated Red Blood Cells % 0.1 %
[2025-02-28 07:07] LABS: Alanine Aminotransferase 32 U/L (7-40); Albumin 3.6 g/dL (3.2-4.8); Alkaline Phosphatase 48 U/L (46-116); Anion Gap 12 (5-15); Bilirubin, Total 0.4 mg/dL (0.2-1.0); Carbon Dioxide 23 mmol/L (20-31); Chloride 106 mmol/L (98-107); Glucose 89 mg/dL (74-106); Sodium 141 mmol/L (136-145); Total Protein 6.1 g/dL (5.7-8.2)
[2025-02-28 07:26] LABS: BUN/Creatinine Ratio 11.4 (10.0-20.0); Blood Urea Nitrogen < 5 mg/dL (9-23); Calcium 8.1 mg/dL (8.7-10.4); Potassium 2.9 mmol/L (3.5-5.1)
[2025-02-28] MEDS: POTASSIUM CHLORIDE 40 MEQ in SOD CHL 0.45% 1,000 ML IV SCH (08:30)
--- NOTE | 2025-02-28 08:58 | DVHPN2 ---
Subjective Patient continues to report having diarrhea. States five episodes yesterday evening in one today. Reviewed: Care Plan, H&P, Labs, Medications Changes from previous H/P or p: No Changes General: Per HPI Eyes: No Pain, No Vision change, No Conjunctivae inflammation, No Eyelid inflammation, No Other, No Redness ENT: No Ear pain, No Ear discharge, No Nose pain, No Nose discharge, No Nose congestion, No Mouth pain, No Mouth swelling, No Throat pain, No Throat swelling, No Other Cardiovascular: No Chest Pain, No Palpitations, No Orthopnea, No Paroxysmal Noc. Dyspnea, No Edema, No Lt Headedness, No Other Respiratory: No Cough, No Dry, No Shortness of breath, No SOB with excertion, No Wheezing, No Hemoptysis, No Pleuritic Pain, No Sputum, No Other Gastrointestinal: Nausea, Vomiting, Abdominal Pain, Diarrhea; No Constipation, No Melena, No Hematochezia, No Other Genitourinary: No Dysuria, No Frequency, No Incontinence, No Hematuria, No Retention, No Other Musculoskeletal: No other, No neck pain, No shoulder pain, No arm pain, No back pain, No hand pain, No leg pain, No foot pain Skin: No Rash, No Lesions, No Jaundice, No Bruising, No Other Objective Vitals Vital Signs Date Time Temp Pulse Resp B/P (MAP) Pulse Ox O2 Delivery O2 Flow Rate FiO2 02/28/25 05:00 98.2 97 19 115/69 (84) 93 98.2 Intake/Output Intake and Output 02/28/25 07:00 Intake Total 1125 ml Balance 1125 ml Intake Oral 475 ml IV Total 650 ml # Voids 4 # Bowel Movements 1 General Appearance: Alert, Oriented X3, Cooperative, No acute distress HEENT: Atraumatic, PERRLA Cardiovascular: Normal S1, Normal S2 Abdomen: Normal bowel sounds, Soft, No tenderness Musculoskeletal: Normal sensory function, Normal motor function Skin: Dry, Intact Psych/Mental Status: Mental status NL, Mood NL Medications Current Medications Medications Dose Ordered Sig/Cullen Route Start Time Stop Time Status Last Admin Dose Admin Acetaminophen/ Hydrocodone Bitart 1 tab Q4HP PRN PO 02/27/25 08:15 Ondansetron HCl 4 mg Q4HP PRN IV 02/27/25 08:15 02/27/25 23:24 4 MG Docusate Sodium 100 mg BIDPRN PRN PO 02/27/25 08:15 Acetaminophen 650 mg Q6HP PRN PO 02/27/25 08:15 Morphine Sulfate 2 mg Q4HPRN PRN IV 02/27/25 08:15 02/27/25 23:26 2 MG Ceftriaxone Sodium 50 ml @ 100 mls/hr DAILY@09 IV 02/27/25 09:00 02/27/25 15:48 100 MLS/HR Metronidazole 100 ml @ 100 mls/hr Q8HR IV 02/27/25 08:15 02/28/25 05:28 100 MLS/HR Potassium Chloride 40 meq/ Sodium Chloride 1,020 ml @ 100 mls/hr [id number] IV 02/28/25 08:30 02/28/25 18:41 Laboratory Results Laboratory Tests 02/28/25 05:51 Chemistry Test 02/28/25 05:51 Albumin 3.6 g/dL (3.2-4.8) Calcium Level 8.1 mg/dL (8.7-10.4) L Total Protein 6.1 g/dL (5.7-8.2) LFT Test 02/28/25 05:51 Alanine Aminotransferase (ALT) 32 U/L (7-40) Alkaline Phosphatase 48 U/L (46-116) Aspartate Amino Transferase (AST) 29 U/L (13-40) Total Bilirubin 0.4 mg/dL (0.2-1.0) Urinalysis Test 02/27/25 03:00 Urine Color Yellow (Yellow) Urine Clarity Clear (Clear) Urine pH 6.5 (5.0-9.0) Urine Specific Wheeler > 1.050 (1.001-1.035) Urine Protein Trace (Negative) H Urine Ketones Trace (Negative) Urine Blood Trace /uL (Negative) H Urine Nitrite Negative (Negative) Urine Bilirubin Negative (Negative) Urine Urobilinogen Normal mg/dL (Negative) Urine Leukocyte Esterase Negative /uL (Negative) Urine RBC 9 /hpf (0 - 4) Urine Microscopic WBC 2 /HPF (0-5) Urine Squamous Epithelial Cells Few /hpf (<5) Urine Bacteria None seen /hpf (None Seen) Urine Glucose Normal mg/dL (Normal) Labs and/or images reviewed: Labs reviewed by me, Image(s) reviewed by me Assessment/Plan Assessment/Plan Impression: -gastroenteritis -hypokalemia -bibasilar opacities Plan: -potassium replacement -antidiarrheals -IV supplementation -advance diet -repeat potassium level this afternoon. Reassess for discharge this afternoon Total time spent with patient discussing and formulating plan of care: 35 minutes. This medical document was created using an electronic medical record system with [employer] dictation system. Although this document has been carefully reviewed, there may still be some phonetic and typographical errors. These areas are purely typographical due to imperfections of the software programs, and do not reflect any compromise in the patient's medical care. Plan discussed with: Patient, Other (RN) My Orders Orders - KIM FU NP Procedure Category Date Status Time Sod Chl 0.45% PHA 02/28/25 In Process (Sodi... W/Potassium 08:30 Date of Service: Feb 28, 2025 Billing Provider: KIM FU NP Common Visit Codes: [id number] INP/OBS CARE(HIGH) KIM FU NP Feb 28, 2025 08:58
[2025-02-28 09:00] VITALS: BP 118/80; PULSE 104; RESP 19; TEMP 97.8; O2SAT 98
[2025-02-28] MEDS: POTASSIUM EFFERVESENT TAB 25 MEQ PO ONE (09:38)
[2025-02-28] MEDS: DIPHENOXYLATE W/ATROPINE 2.5 MG TAB PO ONE (10:52)
[2025-02-28 13:00] VITALS: BP 104/71; PULSE 86; RESP 20; TEMP 97.2; O2SAT 96
[2025-02-28] MEDS ORDERED: METR-344 PO (15:16)
[2025-02-28] MEDS ORDERED: LOPE2CAP16 PO (15:17)
--- NOTE | 2025-02-28 15:26 | DVHDS2 ---
Discharge Summary Date of Admission Feb 27, 2025 at 08:14 Date of Discharge: Feb 28, 2025 Admitting Diagnosis Intractable abdominal pain Labs/Diagnostic Data: Laboratory Results Test 02/28/25 13:09 02/28/25 05:51 02/27/25 03:00 Potassium Level 3.6 mmol/L (3.5-5.1) White Blood Count 4.1 10^3/uL (4.4-10.8) Red Blood Count 4.00 10^6/uL (4.0-5.20) Hemoglobin 12.4 g/dL (12.2-16.2) Hematocrit 35.0 % (36.0-46.0) Mean Corpuscular Volume 87.4 fL (80.0-100.0) Mean Corpuscular Hemoglobin 31.1 pg (28.0-32.0) Mean Corpuscular Hemoglobin Concent 35.6 g/dL (32.0-36.0) Red Cell Distribution Width 12.9 % (11.8-14.3) Platelet Count 351 10^3/uL (140-450) Mean Platelet Volume 7.7 fL (6.9-10.8) Neutrophils (%) (Auto) 63.1 % (37.0-80.0) Lymphocytes (%) (Auto) 24.8 % (10.0-50.0) Monocytes (%) (Auto) 9.0 % (0.0-12.0) Eosinophils (%) (Auto) 2.7 % (0.0-7.0) Basophils (%) (Auto) 0.4 % (0.0-2.0) Neutrophils # (Auto) 2.6 10 ^3/uL (1.6-8.6) Lymphocytes # (Auto) 1.0 10 ^3/uL (0.4-5.4) Monocytes # (Auto) 0.4 10 ^3/uL (0-1.3) Eosinophils # (Auto) 0.1 10 ^3/uL (0-0.8) Basophils # (Auto) 0 10 ^3/uL (0-0.2) Nucleated Red Blood Cells 0.1 % Sodium Level 141 mmol/L (136-145) Chloride Level 106 mmol/L (98-107) Carbon Dioxide Level 23 mmol/L (20-31) Anion Gap 12 (5-15) Blood Urea Nitrogen < 5 mg/dL (9-23) Creatinine 0.44 mg/dL (0.550-1.02) Glomerular Filtration Rate Calc 117 mL/min (>90) BUN/Creatinine Ratio 11.4 (10.0-20.0) Serum Glucose 89 mg/dL (74-106) Calcium Level 8.1 mg/dL (8.7-10.4) Magnesium Level 1.9 mg/dL (1.6-2.6) Total Bilirubin 0.4 mg/dL (0.2-1.0) Aspartate Amino Transferase (AST) 29 U/L (13-40) Alanine Aminotransferase (ALT) 32 U/L (7-40) Alkaline Phosphatase 48 U/L (46-116) Total Protein 6.1 g/dL (5.7-8.2) Albumin 3.6 g/dL (3.2-4.8) Urine Color Yellow (Yellow) Urine Clarity Clear (Clear) Urine pH 6.5 (5.0-9.0) Urine Specific Justice > 1.050 (1.001-1.035) Urine Protein Trace (Negative) Urine Ketones Trace (Negative) Urine Blood Trace /uL (Negative) Urine Nitrite Negative (Negative) Urine Bilirubin Negative (Negative) Urine Urobilinogen Normal mg/dL (Negative) Urine Leukocyte Esterase Negative /uL (Negative) Urine RBC 9 /hpf (0 - 4) Urine Microscopic WBC 2 /HPF (0-5) Urine Squamous Epithelial Cells Few /hpf (<5) Urine Bacteria None seen /hpf (None Seen) Urine Glucose Normal mg/dL (Normal) Other Laboratory Tests 02/28/25 13:09 02/28/25 05:51 Brief Hx & Hospital Course: History of Present Illness Suresh Cleveland is a 50-year-old female with no significant past medical history who came to the hospital for abdominal pain. Patient states she has been experiencing abdominal pain with associated nausea, vomiting, and diarrhea for about 5 days. The last time she tried to eat was yesterday morning, but she vomited the food up. She states the pain started on her left side and radiates across her abdomen. Course of hospitalization: CT scan was negative for any acute pathology. Patient had multiple bouts of diarrhea which has improved with Lomotil. Patient was given IV hydration. Started therapy, given low potassium replete. Patient's symptoms have improved. Patient will be discharged home and continued on Imodium [id number] for persists episodes of diarrhea as well as Flagyl 500 mg p.o. t.i.d. for additional 5 days. Discussion was made with the patient's as well. Patient will follow-up with the discharge Clinic in 1 week. Physical examination General: Alert and Oriented x3. No acute distress. Well-nourished. Eyes: EOMI. Anicteric. HENT: Moist mucous membranes. Lungs: Clear to auscultation bilaterally. No accessory muscle use. Cardiovascular: Regular rate and rhythm. No murmur. No JVD. Abdomen: Soft, non-tender and non-distended. No palpable masses. Extremities: No edema. Non-tender. Skin: No rashes or lesions. Warm. Neurologic: No focal neurological deficits. CN II-XII grossly intact, but not individually tested. Psychiatric: Cooperative. Appropriate mood and affect. Total time spent with patient discussing and formulating plan of care: 35 minutes This medical document was created using an electronic medical record system with [employer] dictation system. Although this document has been carefully reviewed, there may still be some phonetic and typographical errors. These areas are purely typographical due to imperfections of the software programs, and do not reflect any compromise in the patient's medical care. Condition at Discharge: Fair Final Diagnosis/Problems List Acute gastroenteritis -hypokalemia -bibasilar opacities Discharge Disposition: Home Discharge Instruct/Medications Diet: Regular Activity: No Restrictions, As Tolerated Follow Up/Referral: Discharge Clinic in 1 week Medications: Flagyl 500 mg p.o. t.i.d. x5 days Imodium [id number] 1 tablet Q 8 hours as needed for diarrhea Scheduled Metronidazole (Metronidazole), 500 MG PO TID Metronidazole (Flagyl), 1 TAB PO TID Scheduled PRN Hydrocodone-Acetaminophen (Hydrocodone Bitartrate/AC 5-325 mg), 1 TAB PO Q6HPRN PRN Loperamide Hcl (Imodium), 2 MG PO Q8HP PRN 36 Discharge Statement: "Patient was advised to return to the ER or call 911 if any headaches, dizziness, shortness of breath, chest pain, abdominal pain, bleeding, fevers, or worsening of medical condition. Patient was counseled about treatment plan, medications, possible side effects, patientverbalized understanding. All questions were answered to the best of my ability. This discharge took greater then 30 minutes in planning, reviewing documentation, counseling the patient, and discussing with other team members." ASSESSMENT ASSESSMENT Assessment Acute gastroenteritis Date of Service: Feb 28, 2025 Billing Provider: KIM FU NP Common Visit Codes: 72432-QFN/[id number] DISCH DAY >30min KIM FU NP Feb 28, 2025 15:26
== END 2025-02-28 15:53 | disposition home or self-care (01) | DRG 249 ==
LOC: ER 19:44 → OVERFLOW 02-27 08:14
PROVIDERS: ADMIT Nurse Practitioner Acute Care; ATTEND Nurse Practitioner Acute Care
DX: K52.9 Noninfective gastroenteritis and colitis, unspecified (principal); K76.89 Other specified diseases of liver; R16.0 Hepatomegaly, not elsewhere classified; E87.6 Hypokalemia; Z90.49 Acquired absence of other specified parts of digestive tract; Z79.899 Other long term (current) drug therapy
CPT/HCPCS: 36415; 74177; 80048; 80053; 81001; 83735; 84132; 85025; 96361; 96374; 96375; 99291; G0378; J2405; J3490